=== PATIENT | female | born 1975 | race Two or more races ===

== ENCOUNTER 2018-04-17 12:40 | Emergency (ER) | payer SELFPAY ==
[~2018-04-17] VITALS: Ht 152.4 cm; Wt 82.0 kg
[2018-04-17 15:30] VITALS: BP 119/72
== END 2018-04-17 16:00 | disposition home or self-care (01) ==
LOC: ER 13:26
DX: B34.9 Viral infection, unspecified (principal); Z85.6 Personal history of leukemia
CPT/HCPCS: 71045; 81025; 99283